=== PATIENT | male | born 1975 | race African-American/Black ===

== ENCOUNTER → 2024-04-06 | Outpatient (CLI) | payer BC ==
--- NOTE | 2024-04-06 11:59 | XR ---
EXAMINATION TYPE: XR shoulder complete LT DATE OF EXAM: 04/06/2024 11:49 AM COMPARISON: None CLINICAL INDICATION: Male, 49 years old with history of M24.812, M54.42; PHH, pain TECHNIQUE: XR shoulder complete LT; examined in AP, internally rotated and scapular Y projections. FINDINGS: No evidence of acute osseous pathology, joint dislocation, or soft tissue swelling. The remaining po rtions of the visualized chest are unremarkable. Degeneration changes of the acromion, distal clavic le with osteophyte formation. There is osteophyte formation of the glenoid and humeral head. There is joint space narrowing of glenohumeral joint. IMPRESSION: 1. No acute osseous pathology. 2. Mild shoulder osteoarthrosis. [facility], , 04/06/2024 11:56 AM
--- NOTE | 2024-04-06 12:00 | XR ---
EXAMINATION TYPE: XR lumbosacral spine min 4V DATE OF EXAM: 04/06/2024 11:49 AM COMPARISON: None CLINICAL INDICATION: Male, 49 years old with history of M24.812, M54.42; PHH, pain TECHNIQUE: XR lumbosacral spine min 4V - Frontal, lateral , bilateral oblique and coned in L5-S1 late ral views of the spine. FINDINGS: No evidence of any acute osseous pathology. No evidence of loss of vertebral body height i s seen. There is normal alignment of the lumbar vertebral bodies. Mild scattered disc space narrowing . Multilevel marginal osteophyte formation throughout the visualized spine. There is facet joint arth ropathy throughout the spine. Scattered at least mild neural foraminal stenosis. IMPRESSION: 1. No acute fracture. 2. Mild multilevel disc degeneration. [facility], , 04/06/2024 11:58 AM
== END | disposition home or self-care (01) ==
LOC: RADXRMAIN 11:25
PROVIDERS: ATTEND Family Medicine
DX: M19.012 Primary osteoarthritis, left shoulder (principal); M24.812 Other specific joint derangements of left shoulder, not elsewhere classified; M51.16 Intervertebral disc disorders with radiculopathy, lumbar region
CPT/HCPCS: 72110